=== PATIENT | male | born 1990 | race African-American/Black ===

== ENCOUNTER 2022-02-07 12:47 | Emergency (ER) | payer BC ==
[~2022-02-07] VITALS: Ht 182.9 cm; Wt 86.0 kg
[2022-02-07 12:51] VITALS: BP 162/94
[2022-02-07] MEDS ORDERED: NAPR-681 PO (14:11)
[2022-02-07] MEDS ORDERED: CYCL5TAB PO (14:11)
== END 2022-02-07 14:47 | disposition home or self-care (01) ==
LOC: ER 12:47
DX: S00.83XA Contusion of other part of head, initial encounter (principal); S10.93XA Contusion of unspecified part of neck, initial encounter; S50.12XA Contusion of left forearm, initial encounter; M79.644 Pain in right finger(s); V43.52XA Car driver injured in collision with other type car in traffic accident, initial encounter; Y93.89 Activity, other specified; Y92.488 Other paved roadways as the place of occurrence of the external cause
CPT/HCPCS: 99282; 99283